=== PATIENT | female | born 1955 | race Caucasian/White ===

== ENCOUNTER → 2017-04-28 | Day surgery (SDC) | payer MEDICAID ==
[~2017-04-28] MED LIST: Lactated Ringers 1,000 ML IV SCH; Midazolam 1 MG/ML 2 ML SDV ONE; Propofol 200 MG/20 ML SDV ONE; Sodium Chloride 0.9% 10 ML Syringe FLUSH PRN; Sodium Chloride 0.9% 2.5 ML Syringe FLUSH PRN; fentaNYL 100 MCG/2 ML SDV ONE
[2017-04-28 10:35] VITALS: BP 140/67
--- NOTE | 2017-04-28 11:18 | PCM.PREANE ---
Preanesthetic Assessment - Procedure Proposed Procedure: EGD and Colonoscopy - Anesthesia/Transfusion/Family Hx Anesthesia History: Prior Anesthesia Without Reaction Family History of Anesthesia Reaction: No Transfusion History: No Prior Transfusion(s) Intubation History: Unknown - Review of Systems Pulmonary: No Symptoms Cardiovascular: Dyspnea on Exertion (stairs - rests, recovers and continues; not all the time), Other (states she always has had a murmur) Gastrointestinal: Other (GERD) Neurological: Headache (uses ibuprofen daily) Other: Reports: Depression (major depressive disorder dx - on meds), Anxiety - Physical Assessment NPO Status Date: 04/27/17 NPO Status Time: 22:00 O2 Sat by Pulse Oximetry: 96 Respiratory Rate: 16 Vital Signs: Last Vital Signs Temp 98.1 F 04/28/17 10:31 Pulse 67 04/28/17 10:31 Resp 16 04/28/17 10:31 BP 140/67 04/28/17 10:31 Pulse Ox 96 04/28/17 10:31 Height: 5 ft 6 in Weight: 204 lb ASA Class: 3 Mental Status: Alert & Oriented x3 Airway Class: Mallampati = 2 Dentition: Reports: Normal Dentition, Partial (upper frontal) Thyro-Mental Finger Breadths: 3 Mouth Opening Finger Breadths: 3 ROM/Head Extension: Full Lungs: Clear to Auscultation, Normal Respiratory Effort Cardiovascular: Regular Rate, Regular Rhythm, Murmurs (systolic m at LSB), Other - Allergies Allergies/Adverse Reactions: Allergies Allergy/AdvReac Type Severity Reaction Status Date / Time No Known Allergies Allergy Verified 04/25/17 12:06 - Blood Blood Available: No Product(s) Available: None - Acknowledgements Anesthesia Type Planned: MAC Pt an Appropriate Candidate for the Planned Anesthesia: Yes Alternatives and Risks of Anesthesia Discussed w Pt/Guardian: Yes Pt/Guardian Understands and Agrees with Anesthesia Plan: Yes PreAnesthesia Questionnaire HEENT History: Reports: Allergic Rhinitis Other HEENT History: wears glasses, has lower denture Cardiovascular History: Reports: High Cholesterol, Hypertension Respiratory History: Reports: None Gastrointestinal History: Reports: PUD Other Gastrointestinal History: ulcers Genitourinary History: Reports: None 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: Musculoskeletal History: Reports: Fracture Other Musculoskeletal History: hx of fx finger left hand Neurological History: Reports: Brain Injury, Head Trauma Other Neuro History: states "a roof fell" on her head Psychiatric History: Reports: Anxiety, Depression, Other (See Below) Other Psychiatric History: cognitive impairment Endocrine/Metabolic History: Reports: Diabetes, Type II, Obesity/BMI 30+ Hematologic History: Reports: Anemia Immunologic History: Reports: None Oncologic (Cancer) History: Reports: Basal Cell Carcinoma Dermatologic History: Reports: None - Past Surgical History Female Surgical History: Reports: Section, Hysterectomy, Salpingo- Oophorectomy Oncologic Surgical History: Reports: Other (See Below) Other Oncologic Surgeries/Procedures: basal cell excised from left arm - SUBSTANCE USE Smoking Status *Q: Never Smoker Recreational Drug Use History: No - HOME MEDS Home Medications: Home Meds Chlorthalidone 1 tab PO DAILY 12/02/15 [History] Desvenlafaxine Succinate [Pristiq ER] 50 mg PO DAILY 12/02/15 [History] Enalapril Maleate 2 tab PO DAILY 12/02/15 [History] Insulin Aspart Protam & Aspart [Novolog Mix 70-30 Flexpen Syrn] 40 unit SQ QPM 12/02/15 [History] Insulin Aspart Protam & Aspart [Novolog Mix 70-30 Flexpen Syrn] 42 unit SQ QAM 12/02/15 [History] Loratadine 1 tab PO DAILY 12/02/15 [History] Omeprazole 40 mg PO DAILY 12/02/15 [History] Potassium Chloride 1 tab PO DAILY 12/02/15 [History] atorvaSTATin Calcium [Atorvastatin Calcium] 1 tab PO DAILY 12/02/15 [History] cloNIDine HCl [Catapres] 0.5 tab PO BEDTIME 12/02/15 [History] metFORMIN HCl [Glucophage] 1 tab PO BID 12/02/15 [History] Fluticasone Propionate [Flonase Allergy Relief] 2 spray NASBOTH DAILY 04/05/17 [ History] Ibuprofen 4 tab PO ASDIRECTED PRN 04/05/17 [History] - CURRENT (IN HOUSE) MEDS Current Meds: Current Medications Lactated Ringer's (Ringers, Lactated) 1,000 mls @ 125 mls/hr IV ASDIRECTED MARIA GUADALUPE Last Admin: 04/28/17 10:33 Dose: 125 mls/hr Sodium Chloride (Saline Flush) 10 ml FLUSH ASDIRECTED PRN PRN Reason: Keep Vein Open Sodium Chloride (Saline Flush) 2.5 ml FLUSH ASDIRECTED PRN PRN Reason: Keep Vein Open Sodium Chloride (Saline Flush) 10 ml FLUSH ASDIRECTED PRN PRN Reason: Keep Vein Open Sodium Chloride (Saline Flush) 2.5 ml FLUSH ASDIRECTED PRN PRN Reason: Keep Vein Open Discontinued Medications Fentanyl (Sublimaze) Confirm Administered Dose 100 mcg .ROUTE .STK-MED ONE Stop: 04/28/17 07:47 Lidocaine HCl (Xylocaine-Mpf 1%) Confirm Administered Dose 5 ml .ROUTE .STK-MED ONE Stop: 04/28/17 07:47 Midazolam HCl (Versed 1 Mg/Ml) Confirm Administered Dose 2 mg .ROUTE .STK-MED ONE Stop: 04/28/17 07:47 Propofol (Diprivan 20 Ml) Confirm Administered Dose 200 mg .ROUTE .STK-MED ONE Stop: 04/28/17 07:47
--- NOTE | 2017-04-28 11:50 | PCM.SN ---
- Free Text/Narrative Note: Patient complained of dyspnea on exertion this morning. She states that after walking one block she gets tingling in her chest that only resolves with rest. The patient then ate a tic tac this morning. She did not have pre-operative cardiac clearance. I cancelled the case. She will need to have cardiac clearance before rescheduling.
== END ==
LOC: MW.SDS 09:56
PROVIDERS: ATTEND Surgery
DX: D64.9 Anemia, unspecified (principal); R06.00 Dyspnea, unspecified; K21.9 Gastro-esophageal reflux disease without esophagitis; F32.9 Major depressive disorder, single episode, unspecified; F41.9 Anxiety disorder, unspecified; J30.2 Other seasonal allergic rhinitis; E78.00 Pure hypercholesterolemia, unspecified; I10 Essential (primary) hypertension; E11.9 Type 2 diabetes mellitus without complications; E66.9 Obesity, unspecified; Z85.828 Personal history of other malignant neoplasm of skin; Z53.8 Procedure and treatment not carried out for other reasons; Z68.30 Body mass index [BMI] 30.0-30.9, adult; Z79.899 Other long term (current) drug therapy; Z79.4 Long term (current) use of insulin; Z79.51 Long term (current) use of inhaled steroids
CPT/HCPCS: J2250; J2704; J3010; J7120

== ENCOUNTER 2017-07-26 06:58 | Day surgery (SDC) | payer MEDICAID ==
[~2017-07-26 06:58] MED LIST changes: -Lactated Ringers 1,000 ML IV SCH; +Lidocaine 2% 5 ML SDV ONE
[2017-07-26] MEDS ORDERED: Lactated Ringers 1,000 ML IV SCH (07:00)
--- NOTE | 2017-07-26 07:33 | PCM.PREANE ---
Preanesthetic Assessment - Anesthesia/Transfusion/Family Hx Anesthesia History: Prior Anesthesia Without Reaction Family History of Anesthesia Reaction: No Transfusion History: No Prior Transfusion(s) Intubation History: Unknown - Review of Systems General: No Symptoms Pulmonary: No Symptoms Cardiovascular: Chest Pain (coronary disease ruled out) Gastrointestinal: No Symptoms Neurological: No Symptoms Other: Reports: None - Physical Assessment Height: 1.68 m Weight: 94.801 kg ASA Class: 3 Mental Status: Alert & Oriented x3 Airway Class: Mallampati = 2 Dentition: Reports: Normal Dentition, Partial (lower front) Thyro-Mental Finger Breadths: 3 Mouth Opening Finger Breadths: 3 ROM/Head Extension: Full Lungs: Clear to Auscultation, Normal Respiratory Effort Cardiovascular: Regular Rate, Regular Rhythm - Allergies Allergies/Adverse Reactions: Allergies Allergy/AdvReac Type Severity Reaction Status Date / Time No Known Allergies Allergy Verified 04/25/17 12:06 - Blood Blood Available: No - Anesthesia Plan Pre-Op Medication Ordered: None - Acknowledgements Anesthesia Type Planned: MAC Pt an Appropriate Candidate for the Planned Anesthesia: Yes Alternatives and Risks of Anesthesia Discussed w Pt/Guardian: Yes Pt/Guardian Understands and Agrees with Anesthesia Plan: Yes PreAnesthesia Questionnaire HEENT History: Reports: Other (See Below) Other HEENT History: wears glasses, has lower partial removable denture Cardiovascular History: Reports: High Cholesterol, Hypertension Respiratory History: Reports: None Gastrointestinal History: Reports: GERD Other Gastrointestinal History: ulcers Genitourinary History: Reports: 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: Musculoskeletal History: Reports: Arthritis, Back Pain, Chronic, Fracture Other Musculoskeletal History: hx of fx finger, arthritis in knees Neurological History: Reports: Brain Injury, Head Trauma Other Neuro History: states "a roof fell" on her head Psychiatric History: Reports: Anxiety, Depression, PTSD Other Psychiatric History: cognitive impairment Endocrine/Metabolic History: Reports: Diabetes, Type II, Obesity/BMI 30+ Hematologic History: Reports: Anemia Immunologic History: Reports: None Oncologic (Cancer) History: Reports: Basal Cell Carcinoma Other Oncologic History: excision biopsy from arm Dermatologic History: Reports: None - Past Surgical History Head Surgeries/Procedures: Reports: None HEENT Surgical History: Reports: None Cardiovascular Surgical History: Reports: Other (See Below) Other Cardiovascular Surgeries/Procedures: recent cardiac angiogram, a month ago in [facility] - result negative Respiratory Surgical History: Reports: None GI Surgical History: Reports: None Female Surgical History: Reports: Section, Hysterectomy, Oophorectomy Endocrine Surgical History: Reports: None Neurological Surgical History: Reports: None Musculoskeletal Surgical History: Reports: None Oncologic Surgical History: Reports: Other (See Below) Other Oncologic Surgeries/Procedures: basal cell excised from left arm - SUBSTANCE USE Smoking Status *Q: Never Smoker Recreational Drug Use History: No - HOME MEDS Home Medications: Home Meds Chlorthalidone 25 mg PO DAILY 12/02/15 [History] Desvenlafaxine Succinate [Pristiq ER] 100 mg PO DAILY 12/02/15 [History] Enalapril Maleate 40 mg PO DAILY 12/02/15 [History] Insulin Aspart Protam & Aspart [Novolog Mix 70-30 Flexpen Syrn] 40 unit SQ QPM 12/02/15 [History] Insulin Aspart Protam & Aspart [Novolog Mix 70-30 Flexpen Syrn] 42 unit SQ QAM 12/02/15 [History] Loratadine 10 mg PO DAILY 12/02/15 [History] Omeprazole 40 mg PO DAILY 12/02/15 [History] Potassium Chloride 20 meq PO DAILY 12/02/15 [History] atorvaSTATin Calcium [Atorvastatin Calcium] 10 mg PO DAILY 12/02/15 [History] cloNIDine HCl [Catapres] 0.1 mg PO BEDTIME 12/02/15 [History] metFORMIN HCl [Glucophage] 500 mg PO BID 12/02/15 [History] Fluticasone Propionate [Flonase Allergy Relief] 2 spray NASBOTH DAILY 04/05/17 [ History] Gabapentin [Neurontin] 300 mg PO BEDTIME 07/14/17 [History] Metoprolol Succinate 25 mg PO DAILY 07/14/17 [History] - CURRENT (IN HOUSE) MEDS Current Meds: Current Medications Lactated Ringer's (Ringers, Lactated) 1,000 mls @ 125 mls/hr IV ASDIRECTED MARIA GUADALUPE Sodium Chloride (Saline Flush) 10 ml FLUSH ASDIRECTED PRN PRN Reason: Keep Vein Open Sodium Chloride (Saline Flush) 2.5 ml FLUSH ASDIRECTED PRN PRN Reason: Keep Vein Open Sodium Chloride (Saline Flush) 10 ml FLUSH ASDIRECTED PRN PRN Reason: Keep Vein Open Sodium Chloride (Saline Flush) 2.5 ml FLUSH ASDIRECTED PRN PRN Reason: Keep Vein Open Discontinued Medications Fentanyl (Sublimaze) Confirm Administered Dose 100 mcg .ROUTE .STK-MED ONE Stop: 07/26/17 06:55 Lidocaine (Xylocaine-Mpf 2%) Confirm Administered Dose 5 ml .ROUTE .STK-MED ONE Stop: 07/26/17 06:55 Midazolam HCl (Versed 1 Mg/Ml) Confirm Administered Dose 2 mg .ROUTE .STK-MED ONE Stop: 07/26/17 06:55 Propofol (Diprivan 20 Ml) Confirm Administered Dose 200 mg .ROUTE .STK-MED ONE Stop: 07/26/17 06:54
--- NOTE | 2017-07-26 09:37 | PCM.OPNOTE ---
- General Post-Op/Procedure Note Date of Surgery/Procedure: 07/26/17 Operative Procedure(s): EGD and colonoscopy Findings: Mass at GE junction, multiple hyperplastic polyps in stomach, mild esophagitis Pre Op Diagnosis: anemia Post-Op Diagnosis: Mass at GE junction, multiple hyperplastic polyps in stomach , mild esophagitis Anesthesia Technique: [facility] Primary Surgeon: Bev Hazel Condition: Good
[2017-07-26 09:59] VITALS: BP 111/59
--- NOTE | 2017-07-26 11:29 | PCM48HPAN ---
Post Anesthesia Note - EVALUATION WITHIN 48HRS OF ANESTHETIC Vital Signs in Normal Range: Yes Patient Participated in Evaluation: Yes Respiratory Function Stable: Yes Airway Patent: Yes Cardiovascular Function Stable: Yes Hydration Status Stable: Yes Pain Control Satisfactory: Yes Nausea and Vomiting Control Satisfactory: Yes Mental Status Recovered: Yes Resp Rate: 14
--- NOTE | 2017-07-26 11:29 | PCM.POSTAN ---
POST ANESTHESIA ASSESSMENT - MENTAL STATUS Mental Status: Alert, Oriented - RESPIRATORY Respiratory Status: Respiratory Rate WNL, Airway Patent, O2 Saturation Stable - CARDIOVASCULAR CV Status: Pulse Rate WNL, Blood Pressure Stable - GASTROINTESTINAL GI Status: No Symptoms - POST OP HYDRATION Hydration Status: Adequate & Stable
--- NOTE | 2017-07-26 18:55 | OR ---
SURGEON: RADHA MISTRY MD DATE OF PROCEDURE: 07/26/2017 PREOPERATIVE DIAGNOSIS: Anemia. POSTOPERATIVE DIAGNOSES: 1. Mild esophagitis. 2. Hyperplastic gastric polyps. 3. Gastroesophageal junction mass. PROCEDURE PERFORMED: Diagnostic EGD and colonoscopy. ANESTHESIA: MAC. INSTRUMENT USED: Olympus colonoscope and endoscope. EXTENT OF EXAM: To the second portion of duodenum and to the cecum. PREPARATION: Good. LIMITATIONS: None. INDICATION FOR EXAMINATION: The patient is a 62-year-old female, who presented with anemia. The decision was made to proceed with a diagnostic EGD and colonoscopy. I discussed the case with her as well as her guardian. We went through the expected perioperative course, and risks including bleeding, infection, or damage to surrounding structures including perforation. The patient verbalized understanding and wishes to proceed. PROCEDURE IN DETAIL: The patient was brought to the endoscopy suite and placed in the beach chair position. A time-out was completed verifying the patient's name, age, date of , allergies, and procedure to be performed. Monitored anesthesia care was induced and a bite block was placed in the patient's mouth. Continuous oxygen was provided via nasal cannula throughout the procedure. After adequate sedation was achieved, a well-lubricated endoscope was placed in the patient's mouth and advanced under direct visualization to the level of the second portion of the duodenum. This appeared normal and a photograph was taken. The scope was then fully withdrawn while examining the color, texture, anatomy, and integrity of the upper GI tract. The duodenum appeared normal with no evidence of inflammation. The scope was then brought into the stomach and a photograph taken of the GE junction as well as the pylorus. The pylorus appeared normal. The patient was noted to have multiple polyps throughout the gastric body, and fundus with 1 prominent polyp at the GE junction. Biopsies were taken of the gastric mucosa at the antrum, body, and fundus and sent for H. pylori testing and histologic review. One of the hyperplastic-appearing polyps in the body of the stomach was removed and sent to pathology labeled as gastric polyp. The scope was then pulled back to the level of the GE junction. The polyp at the level of the stomach was larger than the other polyps along the body and fundus of the gastric mucosa. It was pedunculated, but its texture appeared irregular. I took multiple biopsies of this and sent it to pathology labeled as GE junction mass. The scope was brought into the distal esophagus. There was some mild esophagitis within the distal esophagus. A photograph was taken. The remainder of the esophageal mucosa was free of pathology. The scope was then removed and this portion of procedure terminated. The patient was then placed in left lateral decubitus position. A digital rectal exam was performed. This exam was within normal limits. A well-lubricated colonoscope was inserted into the rectum and advanced under direct visualization to the level of the cecum. The cecum was identified by both visual and anatomic landmarks. A photograph was taken of the cecal cap, however, I was unable to retroflex the scope within the cecum due to looping of the scope more proximally. The scope was then fully withdrawn while examining the color, texture, anatomy, and integrity of mucosa from the cecum to the anal canal. The findings were consistent with normal colonic mucosa. The scope was then brought into the rectum and retroflexed to allow visualization of the anal canal opening. This appeared normal and a photograph was taken. The scope was then straightened out and removed from the patient. The cecum to anus time was 7 minutes. The patient tolerated the procedure well and was taken to PACU in stable condition. ENDOSCOPIC DIAGNOSES: 1. Mild esophagitis. 2. Hyperplastic gastric polyps. 3. Gastroesophageal junction mass. RECOMMENDATIONS: I called the patient's guardian and made her aware of my findings. I will follow up on the pathology results and touch base with the guardian and patient regarding the next steps in care. Otherwise, I will see her in 2 weeks in clinic. TIMOTHY CASSIDY /[id number]
== END 2017-07-26 10:10 | disposition home or self-care (01) ==
LOC: MW.SDS 06:58
PROVIDERS: ATTEND Surgery
DX: D64.9 Anemia, unspecified (principal); K31.7 Polyp of stomach and duodenum; K20.9 Esophagitis, unspecified; I10 Essential (primary) hypertension; E11.9 Type 2 diabetes mellitus without complications; E66.9 Obesity, unspecified; Z68.33 Body mass index [BMI] 33.0-33.9, adult; E78.00 Pure hypercholesterolemia, unspecified; F41.9 Anxiety disorder, unspecified; F32.9 Major depressive disorder, single episode, unspecified; Z79.4 Long term (current) use of insulin; Z79.899 Other long term (current) drug therapy
CPT/HCPCS: 43239; 45378; J2250; J3010; J7120; 88305; 88312; J2704

== ENCOUNTER 2017-09-27 09:09 | Day surgery (SDC) | payer MEDICAID ==
[~2017-09-27 09:09] MED LIST changes: +Lactated Ringers 1,000 ML IV SCH; -Lidocaine 2% 5 ML SDV ONE; -Midazolam 1 MG/ML 2 ML SDV ONE; -Propofol 200 MG/20 ML SDV ONE; -fentaNYL 100 MCG/2 ML SDV ONE
[2017-09-27] MEDS ORDERED: Midazolam 1 MG/ML 2 ML SDV ONE (09:18)
[2017-09-27] MEDS ORDERED: Propofol 200 MG/20 ML SDV ONE (09:18)
[2017-09-27] MEDS ORDERED: Lidocaine 2% 5 ML SDV ONE (09:18)
--- NOTE | 2017-09-27 10:17 | PCM.PREANE ---
Preanesthetic Assessment - Anesthesia/Transfusion/Family Hx Anesthesia History: Prior Anesthesia Without Reaction Transfusion History: No Prior Transfusion(s) Intubation History: Unknown - Review of Systems General: No Symptoms Pulmonary: No Symptoms Cardiovascular: No Symptoms Gastrointestinal: No Symptoms Neurological: No Symptoms Other: Reports: None - Physical Assessment O2 Sat by Pulse Oximetry: 95 Respiratory Rate: 16 Vital Signs: Last Vital Signs Temp 97.5 F 09/27/17 09:45 Pulse 64 09/27/17 09:45 Resp 16 09/27/17 09:45 BP 126/60 09/27/17 09:45 Pulse Ox 95 09/27/17 09:45 Height: 5 ft 5 in Weight: 94.801 kg Mental Status: Alert & Oriented x3 Airway Class: Mallampati = 2 Dentition: Reports: Normal Dentition Thyro-Mental Finger Breadths: 2 Mouth Opening Finger Breadths: 2 ROM/Head Extension: Limited/Partial Lungs: Clear to Auscultation, Normal Respiratory Effort Cardiovascular: Regular Rate, Regular Rhythm - Lab Values: Laboratory Last Values POC Glucose 124 mg/dL (60-110) H 09/27/17 09:54 - Allergies Allergies/Adverse Reactions: Allergies Allergy/AdvReac Type Severity Reaction Status Date / Time No Known Allergies Allergy Verified 09/22/17 12:23 - Acknowledgements Anesthesia Type Planned: MAC Pt an Appropriate Candidate for the Planned Anesthesia: Yes Alternatives and Risks of Anesthesia Discussed w Pt/Guardian: Yes Pt/Guardian Understands and Agrees with Anesthesia Plan: Yes PreAnesthesia Questionnaire HEENT History: Reports: Other (See Below) Other HEENT History: wears glasses, has lower partial Cardiovascular History: Reports: High Cholesterol, Hypertension Respiratory History: Reports: None Gastrointestinal History: Reports: GERD, Other (See Below) Other Gastrointestinal History: ulcers Genitourinary History: Reports: None 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: Musculoskeletal History: Reports: Arthritis, Fracture Other Musculoskeletal History: hx of fx finger, arthritis in knees Neurological History: Reports: Head Trauma, Migraines Other Neuro History: states "a roof fell" on her head Psychiatric History: Reports: Anxiety, Depression, PTSD Other Psychiatric History: cognitive impairment Endocrine/Metabolic History: Reports: Diabetes, Type II, Obesity/BMI 30+ Hematologic History: Reports: Anemia Immunologic History: Reports: None Oncologic (Cancer) History: Reports: Basal Cell Carcinoma Other Oncologic History: excision biopsy from arm Dermatologic History: Reports: None - Infectious Disease History Infectious Disease History: Reports: None - Past Surgical History Head Surgeries/Procedures: Reports: None HEENT Surgical History: Reports: None Cardiovascular Surgical History: Reports: Other (See Below) Other Cardiovascular Surgeries/Procedures: recent cardiac angiogram, a month ago in [facility] - result negative Respiratory Surgical History: Reports: None GI Surgical History: Reports: None Female Surgical History: Reports: Section, Hysterectomy, Oophorectomy Endocrine Surgical History: Reports: None Neurological Surgical History: Reports: None Musculoskeletal Surgical History: Reports: None Oncologic Surgical History: Reports: Other (See Below) Other Oncologic Surgeries/Procedures: basal cell excised from left arm - SUBSTANCE USE Smoking Status *Q: Never Smoker Recreational Drug Use History: No - HOME MEDS Home Medications: Home Meds Chlorthalidone 25 mg PO DAILY 12/02/15 [History] Desvenlafaxine Succinate [Pristiq] 100 mg PO DAILY 12/02/15 [History] Enalapril Maleate 40 mg PO DAILY 12/02/15 [History] Insulin Aspart Protam & Aspart [Novolog Mix 70-30 Flexpen Syrn] 40 unit SQ QPM 12/02/15 [History] Insulin Aspart Protam & Aspart [Novolog Mix 70-30 Flexpen Syrn] 42 unit SQ QAM 12/02/15 [History] Loratadine 10 mg PO BEDTIME 12/02/15 [History] Omeprazole 40 mg PO DAILY 12/02/15 [History] Potassium Chloride 20 meq PO DAILY 12/02/15 [History] cloNIDine HCl [Catapres] 0.1 mg PO BEDTIME 12/02/15 [History] metFORMIN HCl [Glucophage] 500 mg PO BID 12/02/15 [History] Fluticasone Propionate [Flonase Allergy Relief] 2 spray NASBOTH DAILY 04/05/17 [ History] Gabapentin [Neurontin] 300 mg PO BEDTIME 07/14/17 [History] Metoprolol Succinate 25 mg PO DAILY 07/14/17 [History] Aspirin [[place] Aspirin] 81 mg PO DAILY 09/22/17 [History] Ferrous Sulfate 325 mg PO DAILY 09/22/17 [History] - CURRENT (IN HOUSE) MEDS Current Meds: Current Medications Lactated Ringer's (Ringers, Lactated) 1,000 mls @ 125 mls/hr IV ASDIRECTED MARIA GUADALUPE Last Admin: 09/27/17 10:07 Dose: 125 mls/hr Sodium Chloride (Saline Flush) 10 ml FLUSH ASDIRECTED PRN PRN Reason: Keep Vein Open Sodium Chloride (Saline Flush) 2.5 ml FLUSH ASDIRECTED PRN PRN Reason: Keep Vein Open Discontinued Medications Lidocaine (Xylocaine-Mpf 2%) Confirm Administered Dose 10 ml .ROUTE .STK-MED ONE Stop: 09/27/17 09:19 Midazolam HCl (Versed 1 Mg/Ml) Confirm Administered Dose 2 mg .ROUTE .STK-MED ONE Stop: 09/27/17 09:19 Propofol (Diprivan 20 Ml) Confirm Administered Dose 400 mg .ROUTE .STK-MED ONE Stop: 09/27/17 09:19
--- NOTE | 2017-09-27 11:06 | PCM.OPNOTE ---
- General Post-Op/Procedure Note Date of Surgery/Procedure: 09/27/17 Operative Procedure(s): EGD with polypectomy Findings: 2 large hyperplastic gastric polyps, one at the GEJnx one in fundus Pre Op Diagnosis: hyperplastic polyps Post-Op Diagnosis: same Anesthesia Technique: General ET Tube Primary Surgeon: Bev Hazel Condition: Good
--- NOTE | 2017-09-27 11:11 | PCM.POSTAN ---
POST ANESTHESIA ASSESSMENT - MENTAL STATUS Mental Status: Alert, Oriented - RESPIRATORY Respiratory Status: Respiratory Rate WNL, Airway Patent, O2 Saturation Stable - CARDIOVASCULAR CV Status: Pulse Rate WNL, Blood Pressure Stable - GASTROINTESTINAL GI Status: No Symptoms - PAIN Pain Score: 0 - POST OP HYDRATION Hydration Status: Adequate & Stable
[2017-09-27 11:45] VITALS: BP 106/51
--- NOTE | 2017-09-27 13:46 | OR ---
SURGEON: RADHA MISTRY MD DATE OF PROCEDURE: 09/27/2017 PREOPERATIVE DIAGNOSIS: Hyperplastic gastric polyps. POSTOPERATIVE DIAGNOSIS: Hyperplastic gastric polyps. PROCEDURE PERFORMED: Diagnostic EGD with polypectomy. ANESTHESIA: MAC. INSTRUMENT USED: Olympus endoscope. EXTENT OF EXAM: To the pylorus. PREPARATION: Good. LIMITATIONS: None. INDICATION FOR EXAMINATION: The patient is a 62-year-old female with a longstanding history of gastritis. A diagnostic EGD was performed that showed a hiatal hernia and multiple gastric polyps within the stomach. One of these was extremely large and adhered at the GE junction. Biopsies were taken. It was shown to be hyperplastic polyp. Given its size, however, the optimal treatment is removing this in its entirety. A decision was made to proceed with a repeat EGD and polypectomy. We discussed the procedure, expected perioperative course, and risks including bleeding or perforation. The patient verbalized understanding and wishes to proceed. PROCEDURE IN DETAIL: The patient was brought into the endoscopy suite and placed in a beach chair position. A time-out was completed verifying the patient's name, age, date of , allergies, and procedure to be performed. Monitored anesthesia care was induced and a bite block was placed in the patient's mouth. Continuous oxygen was provided via nasal cannula throughout the procedure. After adequate sedation was achieved, a well-lubricated endoscope was placed in the patient's mouth and advanced under direct visualization to the level of the stomach. Upon entering the stomach, the patient was noted to have multiple gastric polyps. The scope was retroflexed and I reassessed the large GE junction polyp. This appeared to be pedunculated. A hot snare was used to transect the polyp at its base. It was then removed from the stomach and sent to pathology labeled as the GE junction polyp. The scope was then placed back in the stomach. There was a similar-appearing polyp within the fundus. Given its size, the decision was made to remove this as well. This was removed in a similar fashion. A net was used to bring the polyp safely out of the stomach. This was sent to pathology labeled as fundus polyp. The remainder of the gastric mucosa appeared normal. It was in the distal esophagus, I noted the patient to have a hiatal hernia. There was no evidence of ulceration. The scope was removed and the procedure terminated. The patient tolerated the procedure well and was taken to PACU in stable condition. TIMOTHY / KHANH /[id number]
== END 2017-09-27 13:12 | disposition home or self-care (01) ==
LOC: MW.SDS 09:09
PROVIDERS: ATTEND Surgery
DX: K31.7 Polyp of stomach and duodenum (principal); K44.9 Diaphragmatic hernia without obstruction or gangrene; D64.9 Anemia, unspecified; E11.65 Type 2 diabetes mellitus with hyperglycemia; I10 Essential (primary) hypertension; E66.9 Obesity, unspecified; Z79.4 Long term (current) use of insulin; F41.9 Anxiety disorder, unspecified; F32.9 Major depressive disorder, single episode, unspecified; E78.00 Pure hypercholesterolemia, unspecified; E78.5 Hyperlipidemia, unspecified; Z79.82 Long term (current) use of aspirin; Z79.899 Other long term (current) drug therapy
CPT/HCPCS: 43251; 82962; J2250; J2704; J7120

== ENCOUNTER 2020-12-09 11:28 | Emergency (ER) | payer MEDICARE, MEDICAID ==
--- NOTE | 2020-12-09 11:42 | EDM.PDOC ---
ED HPI GENERAL MEDICAL PROBLEM - General Chief Complaint: General Stated Complaint: OVERDOSE Time Seen by Provider: 12/09/20 11:30 - History of Present Illness INITIAL COMMENTS - FREE TEXT/NARRATIVE: 65-year-old female presenting from her care facility after accidentally being given 250 mg of another patient's Clazuril. Patient states that she feels very sleepy but has no other complaints at this time. The ingestion was at 8 AM. Patient was previously at her baseline. She denies any other symptoms exacerbating alleviating factors or radiation. - Related Data Allergies Allergy/AdvReac Type Severity Reaction Status Date / Time No Known Allergies Allergy Verified 12/09/20 11:33 Home Meds: Home Meds Chlorthalidone 25 mg PO DAILY 12/02/15 [History] Desvenlafaxine Succinate [Pristiq] 100 mg PO DAILY 12/02/15 [History] Enalapril Maleate 40 mg PO DAILY 12/02/15 [History] Insulin Aspart Prot/Insuln Asp [Novolog Mix 70-30 Flexpen Syrn] 40 unit SQ QPM 12/02/15 [History] Insulin Aspart Prot/Insuln Asp [Novolog Mix 70-30 Flexpen Syrn] 42 unit SQ QAM 12/02/15 [History] Loratadine 10 mg PO BEDTIME 12/02/15 [History] Omeprazole 40 mg PO DAILY 12/02/15 [History] Potassium Chloride 20 meq PO DAILY 12/02/15 [History] cloNIDine HCL [Catapres] 0.1 mg PO BEDTIME 12/02/15 [History] metFORMIN HCl [Glucophage] 500 mg PO BID 12/02/15 [History] Fluticasone Propionate [Flonase Allergy Relief] 2 spray NASBOTH DAILY 04/05/17 [History] Gabapentin [Neurontin] 300 mg PO BEDTIME 07/14/17 [History] Metoprolol Succinate 25 mg PO DAILY 07/14/17 [History] Aspirin [Truman Aspirin EC] 81 mg PO DAILY 09/22/17 [History] Ferrous Sulfate 325 mg PO DAILY 09/22/17 [History] Past Medical History HEENT History: Reports: Other (See Below) Other HEENT History: wears glasses, has lower partial Cardiovascular History: Reports: High Cholesterol, Hypertension Respiratory History: Reports: None Gastrointestinal History: Reports: GERD, Other (See Below) Other Gastrointestinal History: ulcers Genitourinary History: Reports: None [employer] History: Reports: Musculoskeletal History: Reports: Arthritis, Fracture Other Musculoskeletal History: hx of fx finger, arthritis in knees Neurological History: Reports: Head Trauma, Migraines Other Neuro History: states "a roof fell" on her head Psychiatric History: Reports: Anxiety, Depression, PTSD Other Psychiatric History: cognitive impairment Endocrine/Metabolic History: Reports: Diabetes, Type II, Obesity/BMI 30+ Hematologic History: Reports: Anemia Immunologic History: Reports: None Oncologic (Cancer) History: Reports: Basal Cell Carcinoma Other Oncologic History: excision biopsy from arm Dermatologic History: Reports: None - Infectious Disease History Infectious Disease History: Reports: None - Past Surgical History Head Surgeries/Procedures: Reports: None HEENT Surgical History: Reports: None Cardiovascular Surgical History: Reports: Other (See Below) Other Cardiovascular Surgeries/Procedures: recent cardiac angiogram, a month ago in [facility] - result negative Respiratory Surgical History: Reports: None GI Surgical History: Reports: None Female Surgical History: Reports: Section, Hysterectomy, Oophorectomy Endocrine Surgical History: Reports: None Neurological Surgical History: Reports: None Musculoskeletal Surgical History: Reports: None Oncologic Surgical History: Reports: Other (See Below) Other Oncologic Surgeries/Procedures: basal cell excised from left arm Social & Family History - Family History Family Medical History: No Pertinent Family History - Tobacco Use Tobacco Use Status *Q: Current Every Day Tobacco User Years of Tobacco use: 10 Packs/Tins Daily: 1 ED ROS GENERAL - Review of Systems Review Of Systems: See Below Free Text/Narrative/Comment: General: No fever. Skin: No rash. Eyes: No vision problems. ENT: No sore throat. Neck: No neck stiffness. Respiratory: No shortness of breath. Cardiac: No chest pain. Gastrointestinal: No nausea, vomiting or abdominal pain. Urinary: No dysuria. Musculoskeletal: No myalgias/arthralgias. Neurologic: Per HPI ED EXAM, GENERAL - Physical Exam Exam: See Below Free Text/Narrative:: General Appearance: No acute distress, appears comfortable Skin: No rash HEENT: Normocephalic/atraumatic, sclera anicteric, mucous membranes moist Neck: Normal range of motion Chest and Lungs: Bilateral breath sounds, clear to auscultation Cardiovascular: Regular rate and rhythm Abdomen: Soft, non-tender Back: Normal Musculoskeletal: No edema or tenderness Neurologic: Awake, alert, no obvious deficits, moving all extremities, tired but opens eyes to gentle verbal stimuli oriented and able to answer questions Psychiatric: Appropriate, cooperative #1 Interpretation EKG Date: 12/09/20 Time: 12:18 EKG Interpretation Comments: Normal sinus rhythm rate of 74 normal axis and intervals no acute ischemia Course - Vital Signs Last Recorded V/S: Last Vital Signs Temp 98.1 F 12/09/20 11:29 Pulse 89 12/09/20 17:44 Resp 16 12/09/20 11:29 BP 172/80 H 12/09/20 17:44 Pulse Ox 98 12/09/20 17:44 - Orders/Labs/Meds Labs: Laboratory Tests 12/09/20 12/09/20 12/09/20 Range/Units 12:47 12:47 12:47 WBC 7.62 (4.0-11.0) K/uL RBC 4.72 (4.30-5.90) M/uL Hgb 11.6 L (12.0-16.0) g/dL Hct 36.2 (36.0-46.0) % MCV 76.7 L (80.0-98.0) fL MCH 24.6 L (27.0-32.0) pg MCHC 32.0 (31.0-37.0) g/dL RDW Std Deviation 44.6 (28.0-62.0) fl RDW Coeff of Zofia 16 H (11.0-15.0) % Plt Count 252 (150-400) K/uL MPV 10.20 (7.40-12.00) fL Neut % (Auto) 73.6 (48.0-80.0) % Lymph % (Auto) 16.7 (16.0-40.0) % [place] % (Auto) 5.4 (0.0-15.0) % Eos % (Auto) 3.8 (0.0-7.0) % Baso % (Auto) 0.5 (0.0-1.5) % Neut # (Auto) 5.6 (1.4-5.7) K/uL Lymph # (Auto) 1.3 (0.6-2.4) K/uL [place] # (Auto) 0.4 (0.0-0.8) K/uL Eos # (Auto) 0.3 (0.0-0.7) K/uL Baso # (Auto) 0.0 (0.0-0.1) K/uL Nucleated RBC % 0.0 /100WBC Nucleated RBCs # 0 K/uL Sodium 144 (136-145) mmol/L Potassium 2.8 L (3.5-5.1) mmol/L Chloride 103 (98-107) mmol/L Carbon Dioxide 33.8 H (21.0-32.0) mmol/L BUN 12 (7.0-18.0) mg/dL Creatinine 0.7 (0.6-1.0) mg/dL Est Cr Clr Drug Dosing TNP Estimated GFR (MDRD) > 60.0 ml/min Glucose 81 (74-106) mg/dL Calcium 8.7 (8.5-10.1) mg/dL Magnesium 1.6 L (1.8-2.4) mg/dL Total Bilirubin 0.3 (0.2-1.0) mg/dL AST 19 (15-37) IU/L ALT 23 (14-63) IU/L Alkaline Phosphatase 79 (46-116) U/L Total Protein 7.1 (6.4-8.2) g/dL Albumin 2.8 L (3.4-5.0) g/dL Globulin 4.3 H (2.6-4.0) g/dL Albumin/Globulin Ratio 0.7 L (0.9-1.6) Meds: Medications Discontinued Medications Generic Name Dose Route Start Last Admin Trade Name Freq PRN Reason Stop Dose Admin Sodium Chloride 1,000 mls @ 999 mls/hr 12/09/20 13:39 12/09/20 14:09 Normal Saline IV 12/09/20 14:39 999 mls/hr .Bolus ONE Administration Potassium Chloride 40 meq/ 100 mls @ 25 mls/hr 12/09/20 13:39 12/09/20 14:05 Premix IV 12/09/20 17:38 25 mls/hr ONETIME ONE Administration Departure - Departure Time of Disposition: 18:23 Disposition: Home, Self-Care 01 Condition: Good Clinical Impression: Accidental medication overdose - Discharge Information *PRESCRIPTION DRUG MONITORING PROGRAM REVIEWED*: Not Applicable *COPY OF PRESCRIPTION DRUG MONITORING REPORT IN PATIENT JEREMIAH: Not Applicable Instructions: Accidental Drug Poisoning, Adult Referrals: PCP,None [Ordering Only Provider] - Forms: ED Department Discharge Additional Instructions: Your symptoms today were because you accidentally received another patient's sedating medicine. Now that you have recovered you should have no further issues related to this unintentional overdose. The following information is given to patients seen in the emergency department who are being discharged to home. This information is to outline your options for follow-up care. We provide all patients seen in our emergency department with a follow-up referral. The need for follow-up, as well as the timing and circumstances, are variable depending upon the specifics of your emergency department visit. If you don't have a primary care physician on staff, we will provide you with a referral. We always advise you to contact your personal physician following an emergency department visit to inform them of the circumstance of the visit and for follow-up with them and/or the need for any referrals to a consulting specialist. The emergency department will also refer you to a specialist when appropriate. This referral assures that you have the opportunity for follow-up care with a specialist. All of these measure are taken in an effort to provide you with optimal care, which includes your follow-up. Under all circumstances we always encourage you to contact your private physician who remains a resource for coordinating your care. When calling for follow-up care, please make the office aware that this follow-up is from your recent emergency room visit. If for any reason you are refused follow-up, please contact the [facility] Emergency Department at and asked to speak to the emergency department charge nurse. Sepsis Event Note (ED) - Evaluation Sepsis Screening Result: No Definite Risk - Focused Exam Vital Signs: Vital Signs Temp Pulse Resp BP Pulse Ox 12/09/20 17:44 89 172/80 H 98 12/09/20 17:00 87 171/85 H 99 12/09/20 16:00 85 168/70 H 98 12/09/20 15:00 80 171/88 H 98 12/09/20 14:00 91 173/90 H 95 12/09/20 12:35 84 169/68 H 95 12/09/20 11:29 98.1 F 84 16 149/69 H 94 L - Assessment/Plan Assessment:: 65-year-old female vital signs stable at this time presenting after accidentally being given another patient's Clazuril. Will discuss with poison control. Right now her vital signs are good. 1200: Patient discussed with poison control. Affects are likely to peak at 6 hours after ingestion which would be approximately 2pm. If patient still drooling at that time would need to wait another half-life. Poison control expects patient to need at least 18 hours of observation. We will hold the patient here until 2 PM and continue to carefully assess at the moment the patient does not require intubation. No antidotes or other medical interventions are available to counteract the sedating effect of Clozaril. At the moment patient is satting in the mid 90s on 1 L nasal cannula. Her CO2 is normal at 35. Patient will remain on end-tidal CO2. If she continues to be stable after 2 PM I think transfer to the ICU for observation would be appropriate. 1522: Patient remained stable on end-tidal CO2 with end-tidal CO2 primarily in the low to mid 30s. Patient is receiving potassium supplementation. Patient remains very sleepy but arouses rapidly to verbal stimuli. Patient will require many more hours of close observation will discuss with hospitalist. 1526: Pt discussed with Dr. Murphy. We only have 1 ICU bed left at this time. Dr. Murphy has another patient who may require it. She is reassessing this. But, for now, she requests that we hold the patient in the ED. 1825: The patient has recovered very well over the last 2 hours. She is now awake and alert she is ambulatory with a steady gait and is spent the majority of the last hour talking on her cell phone. She has tolerated dinner well without any issues. She does not display any significant confusion and she is well past the maximum intensity of the Clazuril. For all of these reasons I think she is stable for discharge.
[2020-12-09 13:22] LABS: BLOOD UREA NITROGEN,BUN 12 mg/dL (7.0-18.0); CARBON DIOXIDE,CO2 33.8 mmol/L (21.0-32.0); CHLORIDE,CL 103 mmol/L (98-107); GLUCOSE RANDOM 81 mg/dL (74-106); POTASSIUM,K 2.8 mmol/L (3.5-5.1); SODIUM,NA 144 mmol/L (136-145)
[2020-12-09] MEDS ORDERED: Sodium Chloride 0.9% 1,000 ML IV ONE (13:39)
[2020-12-09] MEDS ORDERED: Potassium Chloride Riders 40 MEQ in Premix Bag 1 BAG IV ONE (13:39)
[2020-12-09 18:59] VITALS: BP 158/46; PULSE 96
== END 2020-12-09 19:07 | disposition home or self-care (01) ==
LOC: MW.ED 11:28
DX: T50.991A Poisoning by other drugs, medicaments and biological substances, accidental (unintentional), initial encounter (principal); E78.00 Pure hypercholesterolemia, unspecified; I10 Essential (primary) hypertension; K21.9 Gastro-esophageal reflux disease without esophagitis; E11.9 Type 2 diabetes mellitus without complications; E66.9 Obesity, unspecified; Z68.30 Body mass index [BMI] 30.0-30.9, adult; Z79.899 Other long term (current) drug therapy; Z79.82 Long term (current) use of aspirin; Z79.4 Long term (current) use of insulin; Z72.0 Tobacco use
CPT/HCPCS: 36415; 80053; 83735; 85025; 93005; 96365; 96366; 99284; J3480; J7030

== ENCOUNTER 2021-06-07 08:23 | Emergency (ER) | payer MEDICARE, MEDICAID ==
[2021-06-07] MEDS: Sodium Chloride 0.9% 10 ML Syringe FLUSH PRN ×2 (08:48→09:13)
[2021-06-07] MEDS: Sodium Chloride 0.9% 2.5 ML Syringe FLUSH PRN ×2 (08:49→09:13)
[2021-06-07] MEDS ORDERED: Sodium Chloride 0.9% 1,000 ML IV ONE (09:06)
[2021-06-07 09:10] LABS: BLOOD UREA NITROGEN,BUN 17 mg/dL (7.0-18.0); CARBON DIOXIDE,CO2 25.4 mmol/L (21.0-32.0); CHLORIDE,CL 97 mmol/L (98-107); GLUCOSE RANDOM 170 mg/dL (74-106); POTASSIUM,K 3.2 mmol/L (3.5-5.1); SODIUM,NA 137 mmol/L (136-145)
[2021-06-07 10:07] VITALS: BP 153/109; PULSE 94
== END 2021-06-07 10:30 | disposition home or self-care (01) ==
LOC: MW.ED 08:23
DX: R44.1 Visual hallucinations (principal); F15.10 Other stimulant abuse, uncomplicated; E78.00 Pure hypercholesterolemia, unspecified; I10 Essential (primary) hypertension; E11.9 Type 2 diabetes mellitus without complications; K21.9 Gastro-esophageal reflux disease without esophagitis; E66.9 Obesity, unspecified; Z68.38 Body mass index [BMI] 38.0-38.9, adult; Z72.0 Tobacco use; Z79.82 Long term (current) use of aspirin; Z79.4 Long term (current) use of insulin; Z79.899 Other long term (current) drug therapy
CPT/HCPCS: 36415; 80053; 80305; 80307; 81001; 82947; 85025; 99284; J3490; J7030

== ENCOUNTER 2021-06-08 16:29 | Emergency (ER) | payer MEDICARE, MEDICAID ==
[2021-06-08 17:28] LABS: BLOOD UREA NITROGEN,BUN 22 mg/dL (7.0-18.0); CARBON DIOXIDE,CO2 23.4 mmol/L (21.0-32.0); CHLORIDE,CL 101 mmol/L (98-107); GLUCOSE RANDOM 210 mg/dL (74-106); POTASSIUM,K 3.1 mmol/L (3.5-5.1); SODIUM,NA 137 mmol/L (136-145)
[2021-06-08] MEDS ORDERED: Potassium Chloride 20 MEQ Tab.ER PO ONE (17:30)
[2021-06-08 17:53] VITALS: BP 139/65; PULSE 80
== END 2021-06-08 17:56 | disposition home or self-care (01) ==
LOC: MW.ED 16:29
DX: E87.6 Hypokalemia (principal); Z00.8 Encounter for other general examination; I10 Essential (primary) hypertension; E11.9 Type 2 diabetes mellitus without complications; E78.00 Pure hypercholesterolemia, unspecified; K21.9 Gastro-esophageal reflux disease without esophagitis; E66.9 Obesity, unspecified; Z68.36 Body mass index [BMI] 36.0-36.9, adult; Z79.4 Long term (current) use of insulin; Z79.82 Long term (current) use of aspirin; Z79.899 Other long term (current) drug therapy
CPT/HCPCS: 36415; 80048; 85025; 93005; 99285; A9270

== ENCOUNTER 2023-01-29 09:43 | Emergency (ER) | payer MEDICARE, MEDICAID | END 2023-01-29 10:20 | disposition left against medical advice (07) | LOC: MW.ED 09:43 | DX: Z53.21 Procedure and treatment not carried out due to patient leaving prior to being seen by health care provider (principal) ==